=== PATIENT | female | born 1950 | race Caucasian/White ===

== ENCOUNTER 2019-05-04 06:09 | Inpatient (IN) | payer OTHER ==
[2019-05-03 12:54] VITALS: BMI 31.6
[2019-05-04] MEDS ORDERED: CEFAZOLIN 2 GM/D5W 2 GM/50 ML ML IVPB ONE (07:20)
[2019-05-04] MEDS ORDERED: ceFAZolin SODIUM 1 GM VIAL ONE ×2 (07:33→07:34)
[2019-05-04] MEDS ORDERED: ROCURONIUM BROMIDE 50 MG/5 ML SYRINGE ONE ×3 (07:33→13:08)
[2019-05-04] MEDS ORDERED: KETAMINE HCL 200 MG/20 ML VIAL ONE (07:34)
[2019-05-04] MEDS ORDERED: KETOROLAC TROMETHAMINE 30 MG/1 ML VIAL ONE (07:34)
[2019-05-04] MEDS ORDERED: SUCCINYLCHOLINE CHLORIDE 200 MG/10 ML SYRINGE ONE (07:34)
[2019-05-04] MEDS ORDERED: DEXAMETHASONE SOD PHOSPHATE 4 MG/1 ML VIAL ONE (07:34)
[2019-05-04] MEDS ORDERED: MIDAZOLAM HCL 2 MG/2 ML SINGLE DOSE VIAL ONE ×2 (07:34)
[2019-05-04] MEDS ORDERED: LIDOCAINE HCL/PF 2% SDV 5ML VIAL ONE ×2 (07:34→08:46)
[2019-05-04] MEDS ORDERED: PROPOFOL 20 ML ONE (07:34)
[2019-05-04] MEDS ORDERED: SODIUM CHLORIDE 0.9% P/F 10 ML VIAL IJ ONE (07:34)
[2019-05-04] MEDS ORDERED: BUPIVACAINE HCL/PF 0.5% (5 MG/ML) 30 ML VIAL IJ ONE (07:38)
[2019-05-04] MEDS ORDERED: VASOPRESSIN 20 UNITS/ML VIAL IV ONE (07:39)
[2019-05-04] MEDS ORDERED: DEXAMETHASONE SOD PHOSPHATE/PF 10 MG/ML SDV ONE (07:39)
[2019-05-04] MEDS ORDERED: LIDOCAINE 1%-EPI 1:100,000 30 ML MDV IJ ONE (07:45)
[2019-05-04] MEDS ORDERED: BUPIVACAINE HCL/PF 0.25% (2.5MG/ML) 10 ML VIAL ONE (07:45)
[2019-05-04] MEDS ORDERED: HEPARIN NA (PORCINE) 5,000 UNITS/ML 1ML VIAL SQ ONE (08:01)
[2019-05-04] MEDS ORDERED: HEPARIN NA (PORCINE) 5,000 UNITS/ML 1ML VIAL ONE (08:20)
[2019-05-04] MEDS ORDERED: LIDOCAINE HCL 1%, 10 MG/ML (20ML VIAL) ONE (08:20)
[2019-05-04] MEDS ORDERED: cefTRIAXone SODIUM 1 GM VIAL IVPB ONE ×2 (08:30→08:33)
[2019-05-04] MEDS ORDERED: MAGNESIUM SULF 50% (8.12 MEQ/2 ML-1 GM VIAL) ONE (08:41)
[2019-05-04] MEDS ORDERED: ePHEDrine SULFATE 50 MG/1 ML AMPULE ONE (09:02)
[2019-05-04] MEDS ORDERED: LIDOCAINE 1%/EPI 1:100000 (20 ML MULTI DOSE VIAL) IJ ONE (09:31)
[2019-05-04] MEDS ORDERED: LIDOCAINE HCL 1%, 10 MG/ML (20ML VIAL) NR ONE (09:31)
[2019-05-04] MEDS ORDERED: SEVOFLURANE 250 ML BTL ONE (10:21)
[2019-05-04] MEDS ORDERED: NEOSTIGMINE METHYLSULFATE 0.5 MG/ML - 10 ML MDV ONE (14:34)
[2019-05-04] MEDS ORDERED: GLYCOPYRROLATE 0.2 MG/1 ML VIAL ONE (14:35)
[2019-05-04] MEDS ORDERED: ONDANSETRON 4 MG/2 ML VIAL IVPUSH PRN ×2 (15:48→16:10)
[2019-05-04] MEDS ORDERED: oxyCODONE HCL 5 MG TABLET PO PRN (16:10)
[2019-05-04] MEDS ORDERED: LACTATED RINGERS SOLUTION 1,000 ML/1,000 ML INFUS.BAG IV SCH (16:15)
[2019-05-04] MEDS ORDERED: ALBUTEROL SO4 8 GM HFA INHALER IH PRN (16:20)
--- NOTE | 2019-05-04 16:28 | OP ---
Operative Note - Note: Operative Date: 05/04/19 Pre-Operative Diagnosis: Incomplete uterine prolapse Operation: Robotic supracervical hysterectomy, bilateral salpingectomy, right oophorectomy, sacral colpopexy with mesh, midurethral sling placement with mesh , posterior repair and cystoscopy Findings: as dictated Post-Operative Diagnosis: Same as Pre-op Surgeon: Fozia Delcid (Tire Sorter surgery: Dr Garzon) Tire Sorter: Frank Khan Anesthesiologist/DATA INTEGRATION ANALYST: Brandon Powers Anesthesia: General Specimens Removed: Uterus, bilateral fallopian tubes, Right ovary Estimated Blood Loss (mls): 150 (ml) Drains, Volume Out (mls): 500 (ml yellow urine) Fluid Volume Replaced (mls): 1,600 (ml LR) Operative Report Dictated: Yes
--- NOTE | 2019-05-04 16:29 | SURG ---
Surgery Senior Solutions Architect Note Senior Solutions Architect: Frank Khan PA-C (Suzy) Date of Service: 05/04/19 Diagnosis: Incomplete uterine prolapse Procedure: Operation: Robotic supracervical hysterectomy, bilateral salpingectomy, right oophorectomy, sacral colpopexy with mesh, midurethral sling placement with mesh , posterior repair and cystoscopy I was present for the entirety of the operative procedure. For further detail, please refer to operative report.
[2019-05-04] MEDS ORDERED: DICYCLOMINE HCL 20 MG TABLET PO SCH (16:30)
[2019-05-04] MEDS ORDERED: SODIUM CHLORIDE 0.9% 500 ML INFUS.BAG IV SCH (16:30)
[2019-05-04] MEDS ORDERED: ACETAMINOPHEN 1000 MG/100 ML VIAL (NON FORMULARY) IVPB ONE (16:45)
--- NOTE | 2019-05-04 17:22 | OP ---
DATE OF OPERATION: DATE OF DICTATION: 05/04/2019 PREOPERATIVE DIAGNOSIS: Incomplete uterine prolapse. POSTOPERATIVE DIAGNOSIS: Incomplete uterine prolapse. PROCEDURE: Robotic supracervical hysterectomy, bilateral salpingectomy, right oophorectomy, sacral colpopexy with mesh, midurethral sling placement with mesh, posterior repair, and cystoscopy. ANESTHESIA: General anesthesia. SURGEON: Franco Diane MD ASSISTING SURGEON: Janelle Garzon MD INDICATIONS: Stage 3 pelvic organ prolapse and stress urinary incontinence. FINDINGS: Stage 3 pelvic organ prolapse and a cystoscopy that showed a normal bladder with no lesions, injury, or stitches noted. Bilateral efflux from the ureteral orifices was seen. The ovaries appeared normal as well as a normal rectal exam at the end of the case. DESCRIPTION OF PROCEDURE: The patient was taken into the operating room and placed on the operating room table in supine position. A time-out was performed. Preoperative antibiotics including ceftriaxone were administered prior to the induction of anesthesia. Sequential compression devices were applied. General anesthesia was induced. The airway was secured using an endotracheal tube. The patient was repositioned in dorsal lithotomy position with padding to all pressure points. The arms were tucked and padded. She was then prepped and draped in the standard sterile fashion, 16-Occitan Parkinson catheter was inserted into the bladder. A 1-cm supraumbilical midline incision was made. Veress needle was used to insufflate the abdomen. Low pressures were noted. On entry, an 8-mm robotic camera port was then placed through the umbilical incision. Once visualization inside the abdomen was obtained, a survey was performed showing no injury to the underlying structures. The port sites were at least 8 cm away from each other in a standard configuration. Two 8-mm robotic ports were then placed on the patient's left side, and 1 additional 8-mm robotic port was placed on the right side. In addition, an 8-mm accessory port was placed in the patient's right side. At this point, the patient was placed in steep Trendelenburg. Robotic arms were docked. Monopolar bharat, bipolar forceps, and a tenaculum were inserted. Attention was now paid to the hysterectomy and bilateral salpingectomy robotic portion of the case. The bowels were retracted from the pelvis using a 3rd arm of the robot; however, the small bowel was difficult to retract with 1 certified medical technician assistant port, so a 2nd 5-mm certified medical technician assistant port was then placed in the left upper quadrant of the abdomen. We inspected the uterus, ovaries, and fallopian tubes all of which appeared normal. Using a tenaculum to manipulate the uterus, the round ligament was cauterized and divided. The fallopian tubes were dissected free of their attachments. The utero-ovarian ligament was divided. The anterior and posterior flaps of the broad ligament were then divided down to the level of the uterine vessels. On the patient's right side, the IP ligament was cauterized and divided allowing for the removal of the right ovary. The left ovary was noted to be normal in appearance, however, densely adherent to the pelvic sidewall, and the decision was made to leave in place given concern for further injury on dissection in the setting of a normal-appearing ovary. The anterior and posterior flaps of the broad ligament again were divided down to the level of the uterine vessels. The anterior peritoneal flap was developed, thus, the bladder from the uterus. The same was performed on contralateral side. An EA size was placed inside the vagina for manipulation, and the uterus was amputated above the cervix. At this point, attention was then paid to the sacral colpopexy component of the case. We identified the sacral promontory. We identified the right ureter laterally. The anterior longitudinal ligament was then cleared off, and the peritoneum was opened down toward the cervix. We then proceeded to develop the anterior and posterior leaflet of the peritoneum of the vaginal wall. The mesh was prepared and inserted into the pelvis. The wide flaps of the mesh were trimmed to 10 cm in length. The mesh was then delivered into the abdomen via the certified medical technician assistant port. Using 2-0 PDS sutures, the mesh was then fixed to the cervix in the anterior vaginal cuff. The tail was reflected upward, and the posterior leaf was fixed in a similar fashion to the posterior vaginal cuff. At this point, we brought the tail of the mesh through towards the sacral promontory and secured it with two 0 Prolene sutures. The excess mesh was trimmed and removed. We then retroperitonealized the mesh using a V-Lock suture in a running fashion. The pelvic was irrigated with good hemostasis noted. We then placed the specimen in an EndoCatch bag through the midline camera port and under direct visualization removed all ports except the midline camera port. The pneumoperitoneum was brought down, and the robot was undocked. Prior to removal of the camera, the EndoCatch bag was brought through the umbilical camera port at the port site. At this point, the supraumbilical incision was enlarged in order to deliver the specimen. The supraumbilical port was then closed using 0 Vicryl. The skin incisions were closed with 4-0 Monocryl in a running subcuticular fashion, and Dermabond was applied to all incisions. A cystoscopy was performed that confirmed the bladder was free from injuries or lesions. Bilateral ureteral jets were identified. The urethra was inspected as the cystoscope was withdrawn and was found to be normal in appearance. A Parkinson catheter was then replaced. We then turned our attention to the midurethral sling. The suprapubic incision points were marked approximately 2.5 cm lateral to the midline in both the left and right side just cranial to the pubic symphysis. The space of Retzius was infiltrated with 30 mL of 0.5% lidocaine on both sides for hydrodissection through the 2 marked points. Skin incisions were made using a 15 blade. At this time, the midurethra was identified approximately 1.5 cm from the urethral meatus. The epithelium was grasped with an Allis clamp, and hyrodissection was completed using 1% lidocaine with epinephrine. A 1-cm skin incision was made using a 15 blade. Two vaginal epithelial pockets were made on the left and the right using sharp dissection with the Metzenbaum scissors. The bladder was once again drained, and the catheter was replaced with the catheter guide directed to the patient's left shoulder. The right-sided retropubic trocar was introduced into the right vaginal pocket and under the pubic symphysis and directed through the space of Retzius and out the suprapubic incision. This was then repeated on the patient's left side. There was no evidence of bladder perforation or urethral perforation. The catheter guide was then removed, and the bladder was inspected with a cystoscope with a 70-degree downward lens. The retropubic sling was placed into the appropriate position using a 9 Hegar dilator as a spacer. That was placed in a tension-free manner with a medium-sized loop. The incision was copiously irrigated. Both of the sling were then cut from the trocar, sheath removed, and the wound was copiously irrigated, and the incision was reapproximated using 2-0 Vicryl sutures in a hemostatic, interlocking fashion. The skin incisions were closed and reapproximated using surgical bonding agents. At this point, we then proceeded with the perineorrhaphy. The posterior vaginal epithelium was infiltrated with 1% lidocaine with epinephrine. The posterior vaginal epithelium was incised in the midline followed by a triangle incision removing epithelial tissue to reinforce the perineal body, [address]-1 suture were used. Two interrupted stitches were then placed. We then closed the vaginal skin using 3-0 Vicryl in a running, interlocking fashion. There were no abnormalities noted on rectal exam following the procedure, and the patient then was awakened and transferred to the PACU in stable condition with a Parkinson catheter draining the bladder. All counts were correct. Dr. Franco Diane and Dr. Janelle Garzon were present and scrubbed throughout the procedure. FRANCO DIANE MD [id number]
--- NOTE | 2019-05-04 19:08 | PN ---
Progress Note (short form) - Note Progress Note: called to PACU for pt unresponsive to verbal stim. pt s/p robotic hospice clinical manager surgery, was in PACU for over 2 hours when RN was unable to arounse the pt. all VS were stable. no resp compromise. BGM was approx 160. pt unresponsive to painful stim as well. hospitalist consult called for eval and full labs ordered. during blood draw, pt suddenly woke up. she claims she could hear us but could not respond. distant history of single seizure without diagnosis- on no meds. will get hospitalist for consult and poss neuro eval. for tele monitoring overnight. pt now awake, oriented, appropriate. VSS.
--- NOTE | 2019-05-04 19:57 | CONSULT ---
Consultation: REQUESTING PROVIDER: Dr Delcid CONSULT REQUEST: We have been asked to medically evaluate this patient for sudden loss of consciousness. HISTORY OF PRESENT ILLNESS: Ms. Chowdary is a 69 year old female with past medical history asthma, HTN, iron deficiency anemia, Kidney stones, Obesity s/p gastric bypass in the late 90s, PUD, uterine prolapse with recurrent UTIs s/p laparoscopic hysterectomy with vaginal sling presented to the medicine team due to unresponsiveness to verbal and painful stimuli. Pt reports being able to hear surgical staff speaking to her but was unable to respond to any of the commands and was unable to move her body. an hour of so prior patient had received a dose of fentanyl for post op pain. At the time she was fully alert and oriented with no focal neurological deficits. Around 6 pm, pt was unable to respond to verbal and painful (sternal rub) stimuli. She endorses hearing her son crying triggered her to wake up. This episode lasted 10-15 minutes without jerking movement or postictal phase. Pt denies experiencing headaches, loss of consciousness, changes in vision, nausea, vomiting, abdominal pain or dizziness prior to the episode. Denies hx of any psychiatric illness or seizure disorder. Of note, pt underwent a laminectomy 10-15 years ago where she experienced a similar episode and was told it was attributed to low oxygen saturation. Pt also reports taking seizure medications for one year about 15 years ago for a seizure but it had remained unclear if it truly was a seizure or a TIA. Past medical history: Asthma, HTN, Iron deficiency anemia Allergies: raisin (gets hives) Past Surgical history: Gastric bypass, brest biopsy,cholecystectomy, laminectomy , hammer toe repair, spine injections Family history: Mother with uterine cancer and sister diagnosed with uterine cancer and breast cancer Social History: no smoking, alcohol, or illicit drug use REVIEW OF SYSTEMS: CONSTITUTIONAL: Absent: fever, chills, diaphoresis, generalized weakness, malaise, loss of appetite, weight change HEENT: Absent: rhinorrhea, nasal congestion, throat pain, throat swelling, difficulty swallowing, mouth swelling, ear pain, eye pain, visual changes CARDIOVASCULAR: Absent: chest pain, syncope, palpitations, irregular heart rate, lightheadedness , peripheral edema RESPIRATORY: Absent: cough, shortness of breath, dyspnea with exertion, orthopnea, wheezing, stridor, hemoptysis GASTROINTESTINAL: Absent: abdominal pain, abdominal distension, nausea, vomiting, diarrhea, constipation, melena, hematochezia GENITOURINARY: Absent: dysuria, frequency, urgency, hesitancy, hematuria, flank pain, genital pain MUSCULOSKELETAL: Absent: myalgia, arthralgia, joint swelling, back pain, neck pain SKIN: Absent: rash, itching, pallor HEMATOLOGIC/IMMUNOLOGIC: Absent: easy bleeding, easy bruising, lymphadenopathy, frequent infections ENDOCRINE: Absent: unexplained weight gain, unexplained weight loss, heat intolerance, cold intolerance NEUROLOGIC: headache Absent: focal weakness or paresthesias, dizziness, unsteady gait, seizure, mental status changes, bladder or bowel incontinence PSYCHIATRIC: Absent: anxiety, depression, suicidal or homicidal ideation, hallucinations. PHYSICAL EXAMINATION Vital Signs - 24 hr 05/04/19 05/04/19 05/04/19 06:57 07:02 15:28 Temperature 97.6 F 98.0 F Pulse Rate 70 100 H Respiratory 18 16 Rate Blood Pressure 136/76 124/61 O2 Sat by Pulse 97 97 97 Oximetry (%) 05/04/19 05/04/19 05/04/19 15:30 15:45 16:00 Temperature Pulse Rate 99 H 92 H 87 Respiratory 18 19 20 Rate Blood Pressure 123/55 L 127/62 126/62 O2 Sat by Pulse 99 99 98 Oximetry (%) 05/04/19 05/04/19 05/04/19 16:15 16:30 16:45 Temperature Pulse Rate 88 89 83 Respiratory 19 16 15 Rate Blood Pressure 123/61 114/61 126/60 O2 Sat by Pulse 98 98 98 Oximetry (%) 05/04/19 05/04/19 05/04/19 17:00 17:15 17:30 Temperature Pulse Rate 85 84 83 Respiratory 19 18 18 Rate Blood Pressure 126/64 123/58 L 121/64 O2 Sat by Pulse 96 96 96 Oximetry (%) 05/04/19 05/04/19 05/04/19 17:45 18:00 18:15 Temperature Pulse Rate 83 84 82 Respiratory 16 84 H 18 Rate Blood Pressure 126/62 125/70 123/74 O2 Sat by Pulse 95 98 99 Oximetry (%) 05/04/19 05/04/19 05/04/19 18:30 18:45 18:50 Temperature Pulse Rate 88 98 H 80 Respiratory 12 18 18 Rate Blood Pressure 125/66 145/60 133/80 O2 Sat by Pulse 99 99 99 Oximetry (%) GENERAL: Awake, alert, and fully oriented, in no acute distress. HEAD: Normal with no signs of trauma. EYES: Pupils equal, round and reactive to light, extraocular movements intact, sclera anicteric, conjunctiva clear. No lid lag. EARS, NOSE, THROAT: oropharynx clear without exudates. Moist mucous membranes. NECK: Normal range of motion, supple without lymphadenopathy, JVD, or masses. no carotid bruit LUNGS: Breath sounds equal, clear to auscultation bilaterally. No wheezes, and no crackles. No accessory muscle use. HEART: Regular rate and rhythm, normal S1 and S2 without murmur, rub or gallop. ABDOMEN: Soft, mild tenderness in surgical region, not distended, normoactive bowel sounds, no guarding, no rebound, no masses. No hepatomegaly or splenomegaly. MUSCULOSKELETAL: Normal range of motion at all joints except left ankle. No bony deformities or tenderness. No CVA tenderness. UPPER EXTREMITIES: 2+ pulses, warm, well-perfused. No cyanosis. No clubbing. Cap refill <2 seconds. No peripheral edema. LOWER EXTREMITIES: 2+ pulses, warm, well-perfused. No calf tenderness. No peripheral edema. NEUROLOGICAL: Cranial nerves II-XII intact. Normal speech. 5/5 strength in upper and lower extremities. Mild weakness in L foot dorsiflexion. sensation intact in face and body PSYCHIATRIC: Cooperative. Good eye contact. Appropriate mood and affect. SKIN: Warm, dry, normal turgor, no rashes or lesions noted. Laboratory Results - last 24 hr 05/04/19 05/04/19 07:49 18:15 POC Glucometer 164 Blood Type A POSITIVE Antibody Screen Negative Active Medications Generic Name Dose Route Start Last Admin Trade Name Freq PRN Reason Stop Dose Admin Acetaminophen 1,000 mg 05/04/19 16:15 Ofirmev Injection - IVPB 05/05/19 10:16 Q6H AMINATA Albuterol Sulfate 1 - 2 puff 05/04/19 16:20 Ventolin Hfa Inhaler - IH PRN PRN WHEEZING Dicyclomine HCl 40 mg 05/04/19 16:30 Bentyl - PO Q6H AMINATA Docusate Sodium 100 mg 05/04/19 22:00 Colace - PO TID AMINATA Fentanyl 25 mcg 05/04/19 15:48 Sublimaze Injection - IVPUSH [id number] PRN PAIN-PACU ORDER X 4 DOSES ONLY Gabapentin 300 mg 05/04/19 22:00 Neurontin - PO TID [facility] Heparin Sodium (Porcine) 5,000 unit 05/05/19 09:00 Heparin - SQ BID [facility] Hydrochlorothiazide 12.5 mg 05/05/19 10:00 Hctz - PO DAILY [facility] Lactated Ringer's 1,000 mls @ 75 mls/hr 05/04/19 16:00 Lactated Ringers Solution IV ASDIR [facility] Ceftriaxone Sodium 1 gm/ 50 mls @ 100 mls/hr 05/05/19 09:00 Dextrose IVPB 05/05/19 09:29 ONCE ONE Ibuprofen 600 mg 05/04/19 22:00 Caldolor Injection - IVPB Q6H PRN PAIN LEVEL 4 - 6 Mometasone Furoate 1 puff 05/04/19 22:00 Asmanex 220mcg - IH HS [facility] Ondansetron HCl 4 mg 05/04/19 15:48 Zofran Injection IVPUSH Q6H PRN NAUSEA AND/OR VOMITING Ondansetron HCl 4 mg 05/04/19 16:10 Zofran Injection IVPUSH Q6H PRN NAUSEA AND/OR VOMITING Oxycodone HCl 5 mg 05/04/19 16:10 Roxicodone - PO Q4H PRN PAIN LEVEL 7 - 10 Pantoprazole Sodium 40 mg 05/05/19 10:00 Protonix - PO DAILY [facility] Sodium Chloride 100 ml 05/04/19 16:30 Normal Saline - IV ASDIR [facility] ASSESSMENT/PLAN: 69 year old female with past medical history asthma, HTN, iron deficiency anemia , Kidney stones, Obesity s/p gastric bypass in the late 90s, PUD, uterine prolapse with recurrent UTIs s/p laparoscopic hysterectomy with vaginal sling presented to the medicine team due to unresponsiveness to verbal and painful stimuli. Acute neurological deficit 2/2 uncertain etiology. s/p fentanyl push for pain, s /p general anesthesia. adverse effect? as pt had a similar episode however delayed a year ago after surgery.Should rule out partial seizure as well, given history of remote seizure 15 years ago with keppra for 1 yr Monitor on telemetry. EKg was in sinus rhythm Monitor vital signs. currently stable. Monitor pulse oximetry. currently satting between 98-99% on NC 2L. Hypoxia ruled out Avoid excessive narcotics or sedatives Head CT w/o contrast showed no acute intracranial processes. 1 cm calcified nodule of the inner left frontal bone, possibly a small meningioma Suggest neuro evaluation for partial seizure in the setting of remote seizure history CBC with leukocytosis most likely secondary to recent surgery. pt afebrile and non toxic appearing. CMP remarkable for mild hyponatremia 132 and hyperglycemia at 155. hypoglycemia ruled out. Monitor lytes and replete PRN trops negative no chest pain. echo for further cardiac assessment ABG Po2 72.5 O2 sat of 94% possibly due to asthma and age. otherwise no other abnormality Dispo: We will continue to follow the patient. Thank you for this consultative opportunity. Visit type - Emergency Visit Emergency Visit: Yes ED Registration Date: 05/04/19 Care time: The patient presented to the Emergency Department on the above date and was hospitalized for further evaluation of their emergent condition. - New Patient This patient is new to me today: Yes Date on this admission: 05/05/19 - Critical Care Critical Care patient: No ATTENDING PHYSICIAN STATEMENT I saw and evaluated the patient. I reviewed the resident's note and discussed the case with the resident. I agree with the resident's findings and plan as documented. SUBJECTIVE: OBJECTIVE: ASSESSMENT AND PLAN:
[2019-05-04 19:58] LABS: BASO % 0.1 % (0-2.0); HEMOGLOBIN 11.7 GM/dL (10.7-15.3); LYMPH % 4.6 % (8-40); MCH 30.9 pg (25.7-33.7); MCHC 33.4 g/dl (32.0-36.0); MEAN CELL VOLUME 92.4 fl (80-96); MEAN PLT VOLUME 8.2 fl (7.5-11.1); MONO % 4.2 % (3.8-10.2); NEUT % 91.1 % (42.8-82.8); PLATELET COUNT 236 K/MM3 (134-434); RBC 3.78 M/mm3 (3.60-5.2); RDW 12.9 % (11.6-15.6); WHITE BLOOD COUNT 14.8 K/mm3 (4.0-10.0)
[2019-05-04 20:24] LABS: PLATELET ESTIMATE NORMAL
[2019-05-04 20:26] LABS: ALBUMIN 3.6 g/dl (3.4-5.0); ALK PHOS 79 U/L (45-117); ANION GAP 8 MMOL/L (8-16); BILIRUBIN,TOTAL 0.3 mg/dL (0.2-1); BLOOD UREA NITROGEN 6.9 mg/dL (7-18); CALCIUM 8.7 mg/dL (8.5-10.1); CHLORIDE 99 mmol/L (98-107); CO2 25 mmol/L (21-32); CREATININE 0.7 mg/dL (0.55-1.3); GLUCOSE,RANDOM 155 mg/dL (74-106); MAGNESIUM 1.9 mg/dL (1.8-2.4); PHOSPHOROUS 3.4 mg/dL (2.5-4.9); POTASSIUM 4.3 mmol/L (3.5-5.1); SGOT/AST 28 U/L (15-37); SGPT/ALT 42 U/L (13-61); SODIUM 132 mmol/L (136-145); TOT PROT 6.4 g/dl (6.4-8.2)
[2019-05-04] MEDS ORDERED: IBUPROFEN 800 MG/8 ML IJ IVPB PRN ×2 (22:00)
[2019-05-04 23:11] LABS: ARTERIAL BLD GAS O2 SATURATION 94.1 % (95-98); ARTERIAL BLOOD GAS BASE EXCESS 0.6 meq/l (-2-2); ARTERIAL BLOOD GAS PCO2 38.7 mmHg (35-45); ARTERIAL BLOOD GAS PO2 72.5 mmHg (80-100); ARTERIAL BLOOD GAS pH 7.42 (7.35-7.45)
[2019-05-04 23:12] LABS: ALLENS TEST POSITIVE
[2019-05-04] MEDS: ACETAMINOPHEN 1000 MG/100 ML VIAL (NON FORMULARY) IVPB SCH (23:26)
[2019-05-04] MEDS: DOCUSATE SODIUM 100 MG CAPSULE (FP) PO SCH (23:27)
[2019-05-04] MEDS: GABAPENTIN 300 MG CAPSULE (FP) PO SCH (23:27)
[2019-05-04] MEDS: MOMETASONE FUROATE 220 MCG/IH INHALER IH SCH (23:27)
[2019-05-04] MEDS ORDERED: PT OWN MED DRAWER 7, Y5N ONE (23:34)
[2019-05-04] MEDS: LACTATED RINGERS SOLUTION 1,000 ML IV SCH (23:45)
[2019-05-04] MEDS: DICYCLOMINE HCL 10 MG CAPSULE PO SCH (23:50)
--- NOTE | 2019-05-05 00:14 | PN ---
Teaching Attending Note Name of Resident: Roxanne Rizzo ATTENDING PHYSICIAN STATEMENT I saw and evaluated the patient. I reviewed the resident's note and discussed the case with the resident. I agree with the resident's findings and plan as documented. SUBJECTIVE: 69-year-old woman with a history of asthma, hypertension, anemia, PUD, remote seizure episode 15 years ago that was described to be tonic-clonic, underwent robotic laparoscopic supracervical hysterectomy, sacral pexy, vaginal sling, cystoscopy on 05/04 in the afternoon. Shortly postop, patient became unresponsive to staff when she was in PACU. This occurred around 6 PM patient' s vital signs were within normal limits and blood glucose was normal. Patient reported that she was able to hear everything going on not able to open her eyes. It was noted that this lasted for several minutes. No mention of tonic- clonic movements or jerks. Patient reports episode of similar occurrence one year ago following surgical procedure however occurred the day after the procedure. Patient reported slight headache but otherwise did not have any other complaints. noted that patient received 25 mcg of fentanyl push shortly prior to her episode. OBJECTIVE: Last Vital Signs Temp Pulse Resp BP Pulse Ox 98.6 F 78 16 115/51 L 99 05/04/19 22:00 05/05/19 00:00 05/05/19 00:00 05/05/19 00:00 05/04/19 22:00 GENERAL: Well developed, well nourished. Awake and alert. No acute distress. HEENT: Normocephalic, atraumatic. PERRLA, EOMI. No conjunctival pallor. Sclera are non- icteric. Moist mucous membranes. Oropharynx is clear. NECK: Supple. Full ROM. No JVD. Carotid pulses 2+ and symmetric, without bruits. No thyromegaly. No lymphadenopathy. CARDIOVASCULAR: Regular rate and rhythm. No murmurs, rubs, or gallops. Distal pulses are 2+ and symmetric. PULMONARY: No evidence of respiratory distress. Lungs clear to auscultation bilaterally. No wheezing, rales or rhonchi. ABDOMINAL: Soft. Non-tender. Non-distended. No rebound or guarding. No organomegaly. Normoactive bowel sounds. MUSCULOSKELETAL Normal range of motion at all joints. No bony deformities or tenderness. No CVA tenderness. EXTREMITIES: No cyanosis. No clubbing. No edema. No calf tenderness. SKIN: Warm and dry. Normal capillary refill. No rashes. No jaundice. PSYCHIATRIC: Cooperative. Good eye contact. Appropriate mood and affect. EKG reviewed and noted to be sinus rhythm Head CT was negative for any acute intracranial insults on my read Chemistry was positive for mild hyponatremia and CBC showed leukocytosis ASSESSMENT AND PLAN: Acute altered mental status directly postop, status post injection of fentanyl. Suspect possible adverse drug reaction from general anesthesia or fentanyl push. Hypoglycemia was ruled out. Head CT noted for a 1 cm calcified nodule of the inner left frontal bone, possibly a small meningioma but no acute insults. History also suggestive of possible isolated paralysis as thought process was described as coherent by patient.Should rule out partial seizure as well, especially given history of remote seizure 15 years ago. Monitor on film masker vital signs closely Monitor pulse oximetry Avoid excessive narcotics or sedatives Monitor electrolytes closely and supplement as needed Suggest neuro evaluation to Evaluate for partial seizure
[2019-05-05] MEDS: ACETAMINOPHEN 1000 MG/100 ML VIAL (NON FORMULARY) IVPB SCH (06:18)
[2019-05-05] MEDS: DICYCLOMINE HCL 10 MG CAPSULE PO SCH ×4 (06:23→23:03)
[2019-05-05] MEDS: GABAPENTIN 300 MG CAPSULE (FP) PO SCH ×3 (06:24→21:57)
[2019-05-05] MEDS: DOCUSATE SODIUM 100 MG CAPSULE (FP) PO SCH ×3 (06:24→21:57)
[2019-05-05 06:50] LABS: HEMATOCRIT 31.4 % (32.4-45.2); HEMOGLOBIN 10.6 GM/dL (10.7-15.3); MCH 31.2 pg (25.7-33.7); MCHC 33.7 g/dl (32.0-36.0); MEAN CELL VOLUME 92.7 fl (80-96); MEAN PLT VOLUME 8.2 fl (7.5-11.1); PLATELET COUNT 203 K/MM3 (134-434); RBC 3.39 M/mm3 (3.60-5.2); RDW 13.5 % (11.6-15.6); WHITE BLOOD COUNT 11.3 K/mm3 (4.0-10.0)
[2019-05-05 07:22] LABS: BLOOD UREA NITROGEN 7.8 mg/dL (7-18); CALCIUM 8.3 mg/dL (8.5-10.1); CREATININE 0.7 mg/dL (0.55-1.3); POTASSIUM 4.8 mmol/L (3.5-5.1)
--- NOTE | 2019-05-05 07:30 | PN ---
Teaching Attending Note Name of Resident: Tawanda Oviedo ATTENDING PHYSICIAN STATEMENT I saw and evaluated the patient. I reviewed the resident's note and discussed the case with the resident. I agree with the resident's findings and plan as documented. SUBJECTIVE: No new seizure/altered mental status overnight OBJECTIVE: Vital Signs Temperature 98.2 F 05/05/19 02:36 Pulse Rate 76 05/05/19 06:00 Respiratory Rate 19 05/05/19 06:00 Blood Pressure 103/48 L 05/05/19 06:00 O2 Sat by Pulse Oximetry (%) 99 05/04/19 22:00 General: Elderly woman, comfortable, not in distress HEENT; mucous membranes moist, no anemia, no jaundice, PERRLA, no nystagmus Neck: No JVD, supple, no bruit, thyroid palpably normal, normal carotid pulsations. Chest: Nontender, clear to auscultation bilaterally CVS: S1-S2 regular no murmur/gallop/rub Abdomen: S/P surgery, Nondistended, soft, bowel sounds present. Extremities: No edema., No cough tenderness, pulses present CENTRIFUGAL STATION OPERATOR: AO X3 , no gross motor sensory deficit CBC, BMP 05/05/19 05:45 05/05/19 05:45 Active Medications Acetaminophen (Ofirmev Injection -) 1,000 mg IVPB Q6H [facility] Stop: 05/05/19 10:16 Last Admin: 05/05/19 06:18 Dose: 1,000 mg Albuterol Sulfate (Ventolin Hfa Inhaler -) 1 - 2 puff IH Q6H PRN PRN Reason: SHORT OF BREATH/WHEEZING Dicyclomine HCl (Bentyl -) 40 mg PO Q6H [facility] Last Admin: 05/05/19 06:23 Dose: 40 mg Docusate Sodium (Colace -) 100 mg PO TID [facility] Last Admin: 05/05/19 06:24 Dose: 100 mg Fentanyl (Sublimaze Injection -) 25 mcg IVPUSH [id number] PRN PRN Reason: PAIN-PACU ORDER X 4 DOSES ONLY Gabapentin (Neurontin -) 300 mg PO TID [facility] Last Admin: 05/05/19 06:24 Dose: 300 mg Heparin Sodium (Porcine) (Heparin -) 5,000 unit SQ BID [facility] Hydrochlorothiazide (Hctz -) 12.5 mg PO DAILY [facility] Lactated Ringer's (Lactated Ringers Solution) 1,000 mls @ 75 mls/hr IV ASDIR [facility] Last Admin: 05/04/19 23:45 Dose: 75 mls/hr Ceftriaxone Sodium 1 gm/ (Dextrose) 50 mls @ 100 mls/hr IVPB ONCE ONE Stop: 05/05/19 09:29 Ibuprofen (Caldolor Injection -) 600 mg IVPB Q6H PRN PRN Reason: PAIN LEVEL 4 - 6 Mometasone Furoate (Asmanex 220mcg -) 1 puff IH HS [facility] Last Admin: 05/04/19 23:27 Dose: 1 puff Ondansetron HCl (Zofran Injection) 4 mg IVPUSH Q6H PRN PRN Reason: NAUSEA AND/OR VOMITING Ondansetron HCl (Zofran Injection) 4 mg IVPUSH Q6H PRN PRN Reason: NAUSEA AND/OR VOMITING Oxycodone HCl (Roxicodone -) 5 mg PO Q4H PRN PRN Reason: PAIN LEVEL 7 - 10 Pantoprazole Sodium (Protonix -) 40 mg PO DAILY [facility] Sodium Chloride (Normal Saline -) 100 ml IV ASDIR [facility] Last Admin: 05/04/19 23:30 Dose: 100 ml ASSESSMENT AND PLAN:69-year-old woman with a history of asthma, hypertension, anemia, PUD, remote seizure episode 15 years ago that was described to be tonic- clonic, underwent robotic laparoscopic supracervical hysterectomy, sacral pexy, vaginal sling, cystoscopy on 05/04 in the afternoon. Shortly postop, patient became unresponsive to staff when she was in PACU. This occurred around 6 PM, episode started just after fentanyl injection patient has similar episode, last year, patient says she was aware of surrounding what is going on around her, people trying to open her right forcefully but she was not able to, not communicate with. No witnessed seizure incontinence or postictal confusion. Impression: Altered mental status/dissociated state in the setting function. Problem List - Problems (1) Altered mental status Assessment/Plan: Patient had a brief transient loss of consciousness perioperatively with remote history of seizures disorder last episode was 15 years ago, considering intended infusion looks like dissociated syndrome, evaluated by neurology recommended EEG that can be performed as an outpatient patient follow-up [facility].. Problems reviewed: Yes Code(s): R41.82 - ALTERED MENTAL STATUS, UNSPECIFIED (2) Hypertension Assessment/Plan: Well-controlled continue all medications Problems reviewed: Yes Code(s): I10 - ESSENTIAL (PRIMARY) HYPERTENSION (3) S/p partial hysterectomy with remaining cervical stump Assessment/Plan: Postoperative day 1 postoperative management as per operative Problems reviewed: Yes (4) Asthma Assessment/Plan: Stable no need for any medication. Problems reviewed: Yes Code(s): J45.909 - UNSPECIFIED ASTHMA, UNCOMPLICATED
--- NOTE | 2019-05-05 07:48 | PN ---
Progress Note (short form) - Note Progress Note: Internal Medicine Consult Note (Resident) HPI: Briefly, pt here with hysterectomy and upon post-operative recovery pt was noted to be unresponsive, however pt remembers being conscious of her surroundings through auditory cues. Pt has had previous episodes before with pattern of recovering from sedating medications. Pt received fentanyl 1hr prior to episode occurring. Currently pt feels in normal state without any significant episodes after her initial one. Pt did not have any urinary incontinence, did not lose consciousness. PE: GEN: NAD, awake, alert, oriented x3 HEENT: EOMI without nystagmus, RENE, sclera anicteric, MMM Neck: No JVD, no carotid bruits LUNG: CTA b/l without wheezes or ralezs CARD: RRR no murmurs appreciated ABD: soft, nondistended, slight tenderness near surgical sites, + BS EXT: no edema noted Neuro: CN II-XII intact, strength 5/5 symmetrically throughout. No sensation loss. Babinski downgoing. CBC, BMP 05/05/19 11:52 05/05/19 05:45 Active Medications Acetaminophen (Tylenol -) 1,000 mg PO Q6H PRN PRN Reason: PAIN LEVEL 1-5 Albuterol Sulfate (Ventolin Hfa Inhaler -) 1 - 2 puff IH Q6H PRN PRN Reason: SHORT OF BREATH/WHEEZING Dicyclomine HCl (Bentyl -) 40 mg PO Q6H [facility] Last Admin: 05/05/19 18:11 Dose: 40 mg Docusate Sodium (Colace -) 100 mg PO TID [facility] Last Admin: 05/05/19 13:25 Dose: 100 mg Gabapentin (Neurontin -) 300 mg PO TID [facility] Last Admin: 05/05/19 13:25 Dose: 300 mg Heparin Sodium (Porcine) (Heparin -) 5,000 unit SQ BID [facility] Last Admin: 05/05/19 13:26 Dose: Not Given Hydrochlorothiazide (Hctz -) 12.5 mg PO DAILY [facility] Last Admin: 05/05/19 10:04 Dose: 12.5 mg Lactated Ringer's (Lactated Ringers Solution) 1,000 mls @ 75 mls/hr IV ASDIR [facility] Last Admin: 05/05/19 18:12 Dose: Not Given Ibuprofen (Motrin -) 600 mg PO Q6H PRN PRN Reason: PAIN LEVEL 4 - 6 Last Admin: 05/05/19 10:04 Dose: 600 mg Mometasone Furoate (Asmanex 220mcg -) 1 puff IH HS [facility] Last Admin: 05/04/19 23:27 Dose: 1 puff Ondansetron HCl (Zofran Injection) 4 mg IVPUSH Q6H PRN PRN Reason: NAUSEA AND/OR VOMITING Ondansetron HCl (Zofran Injection) 4 mg IVPUSH Q6H PRN PRN Reason: NAUSEA AND/OR VOMITING Oxycodone HCl (Roxicodone -) 5 mg PO Q4H PRN PRN Reason: PAIN LEVEL 7 - 10 Pantoprazole Sodium (Protonix -) 40 mg PO DAILY [facility] Last Admin: 05/05/19 10:03 Dose: 40 mg Assessment and Plan: Altered mental status Partial hysterectomy POD 1 Mild persistent asthma Hypertension history --Pt has been told she had seizure episodes in the past that was treated with AED (Keppra) in past. Low suspicion this is a seizure and given proximity to narcotic dose with avoid narcotics at this time. Neurology consultation placed for further input. Would not started any AED treatment at this time due to lack of consistent episodes and low suspicion --No telemetry events noted. Can continue monitoring on telemetry for now --HTN well controlled: Continue HCTZ12.5mg qdaily and monitor BP for any fluctuations --Post-operative management including pain control per surgical team Thank you for this consultative opportunity. Will continue to follow while patient is inpatient. Case discussed with Dr. Shakila Oviedo, DO - IM PGY-3
--- NOTE | 2019-05-05 08:31 | PN ---
Progress Note (short form) - Note Progress Note: POD 1, s/p Robotic laparoscopic supracervical hysterectomy, sacropexy, vaginal sling, cystoscopy c/b episode of unresponsiveness in PACU after fentanyl administration. Pt seen and examined. Reports she is doing well, no issues overnight. PACU episode discussed, pt reports she had a similar event 1 year ago a day after having surgery. Also had a tonic-clonic seizure approximately 15 years ago, reports she had a full workup which yielded no findings, no issues since. Draper in place overnight, has not had anything to eat/drink. No flatus yet. Denies cp/ sob, n/v/d. Vital Signs Temp 98.2 F 05/05/19 02:36 Pulse 76 05/05/19 06:00 Resp 19 05/05/19 06:00 BP 103/48 L 05/05/19 06:00 Pulse Ox 99 05/04/19 22:00 Intake & Output 05/04/19 05/04/19 05/05/19 11:59 23:59 11:59 Intake Total 1600 500 589.6 Output Total 650 2000 700 Balance 950 -1500 -110.4 Intake: IV 1600 400 589.6 Lactated Ringers Solution 589.6 1,000 ml @ 75 mls/hr IV [facility] Rx#:[id number] Oral 100 Output: Urine 500 2000 700 Draper 700 Estimated Blood Loss 150 Other: Voiding Method Indwelling Catheter Bowel Movement No CBC, BMP 05/05/19 05:45 05/05/19 05:45 Gen: awake, alert, nad Resp: unlabored on RA Abdo: soft, minimally ttp at pelvis/incision sites. Incisions c/d/i with dermabond in place. Some ecchymosis around umbilicus and left lateral port site. : No vaginal bleeding noted, draper in place with moderate yellow urine in bag A/P: 69 y/o F w/ PMHx asthma, HTN, iron deficiency anemia, Kidney stones, Obesity s/p gastric bypass in the late 90s, PUD, uterine prolapse with recurrent UTIs s/p robotic hysterectomy with vaginal sling, c/b episode of unresponsiveness in PACU after fentanyl administration. No further issues overnight. Afebrile, VSS Labs reviewed UOP 700ml overnight -Pain control with Acetaminophen 1000mg po q6hrs prn, Ibuprofen 600mg q6h PO prn , Oxycodone 5 mg q4hrs prn -DVT prophylaxis with Heparin 5000units SQ BID beginning this Am, SCDs, early ambulation -OOB -Draper out this AM, Bladder scan after 1st void and record -Monitor UOP -Clears, advance to regular diet -Possibly d/c later today vs tomorrow AM, will see pt later this afternoon d/w Dr Delcid
[2019-05-05] MEDS ORDERED: ACETAMINOPHEN 500 MG TABLET (FP) PO PRN ×3 (08:59→15:00)
[2019-05-05] MEDS ORDERED: CEFTRIAXONE 1 GM in DEXTROSE 5%-WATER - 50 ML IVPB ONE ×2 (09:00→13:30)
[2019-05-05] MEDS ORDERED: HYDROCHLOROTHIAZIDE 12.5 MG CAPSULE (FP) PO SCH (10:00)
[2019-05-05] MEDS: HEPARIN NA (PORCINE) 5,000 UNITS/ML 1ML VIAL SQ SCH ×3 (10:00→21:58)
[2019-05-05] MEDS ORDERED: PANTOPRAZOLE 40 MG TABLET (FP) PO SCH (10:00)
[2019-05-05] MEDS: IBUPROFEN 600 MG TABLET (FP) PO PRN ×2 (10:04→22:03)
--- NOTE | 2019-05-05 11:19 | ECHO ---
Name: LAURA RAE Exam:Adult Echocardiogram Study Date: 05/05/2019 08:19 AM Age: 69 yrs Reason For Study: LV Function Height: 63 in Weight: 179 lb BSA: 1.8 m2 MMode/2D Measurements & Calculations IVSd: 1.2 cm Ao root diam: 2.7 cm LVIDd: 3.3 cm LA dimension: 3.3 cm LVIDs: 2.0 cm LVPWd: 0.94 cm EDV(Teich): 43.5 ml LVOT diam: 2.0 cm ESV(Teich): 11.9 ml LAV (MOD-bp): 48.2 ml Doppler Measurements & Calculations MV E max tate: 124.0 cm/sec Ao V2 max: 210.4 cm/sec MV A max tate: 74.4 cm/sec Ao max P.7 mmHg MV E/A: 1.7 Ao V2 mean: 141.0 cm/sec MV dec time: 0.19 sec Ao mean P.2 mmHg Ao V2 VTI: 44.7 cm THO(I,D): 2.0 cm2 THO(V,D): 1.9 cm2 LV V1 max P.3 mmHg MR max tate: 416.4 cm/sec LV V1 mean P.4 mmHg MR max P.0 mmHg LV V1 max: 125.2 cm/sec LV V1 mean: 85.4 cm/sec LV V1 VTI: 28.3 cm SV(LVOT): 88.3 ml TR max tate: 255.7 cm/sec TR max P.4 mmHg PA V2 max: 88.2 cm/sec Med Peak E' Tate: 12.5 cm/sec PA max P.1 mmHg Med E/e': 9.9 Lat Peak E' Tate: 12.1 cm/sec Lat E/e': 10.3 Left Ventricle There is mild concentric left ventricular hypertrophy. Left ventricular systolic function is normal. Ejection Fraction = 55-60%. The transmitral spectral Doppler flow pattern is normal for age. Right Ventricle The right ventricle is normal in size and function. Atria Normal left and right atrial size and function. Mitral Valve The mitral valve is normal in structure and function. There is no mitral valve stenosis. There is mil d mitral regurgitation. Tricuspid Valve The tricuspid valve is normal in structure and function. There is mild tricuspid regurgitation. Right ventricular systolic pressure is elevated at 30-40mmHg. Aortic Valve The aortic valve opens well. No hemodynamically significant valvular aortic stenosis. No aortic regur gitation is present. Pulmonic Valve The pulmonic valve is not well seen, but is grossly normal. There is no pulmonic valvular stenosis. M ild pulmonic valvular regurgitation. Great Vessels The aortic root is normal size. Pericardium/Pleura There is no pericardial effusion. Interpretation Summary Left ventricular systolic function is normal. Ejection Fraction = 55-60%. The right ventricle is normal in size and function. There is mild concentric left ventricular hypertrophy. There is mild mitral regurgitation. There is mild tricuspid regurgitation. Right ventricular systolic pressure is elevated at 30-40mmHg. There is no pericardial effusion. MD Walker *Ayush 05/05/2019 11:19 AM
[2019-05-05 12:27] LABS: BASO % 0.2 % (0-2.0); EOS % 0.1 % (0-4.5); HEMATOCRIT 32.3 % (32.4-45.2); HEMOGLOBIN 11.2 GM/dL (10.7-15.3); MCH 31.9 pg (25.7-33.7); MCHC 34.8 g/dl (32.0-36.0); MEAN CELL VOLUME 91.7 fl (80-96); MEAN PLT VOLUME 7.9 fl (7.5-11.1); MONO % 8.8 % (3.8-10.2); NEUT % 78.9 % (42.8-82.8); PLATELET COUNT 229 K/MM3 (134-434); RBC 3.53 M/mm3 (3.60-5.2); RDW 13.3 % (11.6-15.6); WHITE BLOOD COUNT 10.8 K/mm3 (4.0-10.0)
[2019-05-05] MEDS ORDERED: PT OWN MED DRAWER 7, Y5N ONE (13:11)
[2019-05-05] MEDS ORDERED: DEXTROSE 5%-WATER - 50 ML IVPB ONE (13:22)
[2019-05-05] MEDS ORDERED: cefTRIAXone SODIUM 1 GM VIAL ONE (13:22)
--- NOTE | 2019-05-05 15:37 | PN ---
Progress Note (short form) - Note Progress Note: Draper removed this Am approx 0800. Pt voided twice per RN this afternoon (not measured but RN reports large amount). Bladder scan approx 400ml. Pt reports no discomfort. D/w attending, bladder scan likely altered due to pelvic fluid. Will hold off on replacing draper catheter at this time. Order placed and d/w RN to measure and record urine outputs. Attending to be by to see pt shortly. D/w attending Dr Delcid
--- NOTE | 2019-05-05 17:28 | CON.NEURO ---
Consult Consult Specialty:: Scott Referred by:: PCP - History of Present Illness History of Present Illness: 69-year-old right-handed female patient withmultiple medical problem bronchial asthma Coronary artery disease Osteoarthritis mild obesity hypertension Patient was seen in the medical ICU at the request primary care physician and the surgical team because of episode of unresponsiveness. Patient was given fentanyl before. Patient is not on narcotics. Patient with no family history of seizure. - History Source History Provided By: Medical Record Limitations to Obtaining History: Clinical Condition - Alcohol/Substance Use Hx Alcohol Use: No - Smoking History Smoking history: Never smoked Have you smoked in the past 12 months: No Home Medications - Allergies Allergies/Adverse Reactions: Allergies Allergy/AdvReac Type Severity Reaction Status Date / Time No Known Drug Allergies Allergy Verified 05/04/19 07:03 raisins Allergy Severe Hives Uncoded 05/03/19 12:44 - Home Medications Home Medications: Ambulatory Orders Albuterol Sulfate Inhaler - [Ventolin Hfa Inhaler -] 1 - 2 inh PO PRN PRN Dicyclomine HCl [Bentyl -] 40 mg PO Q6H 05/03/19 Fluticasone Propionate [Flovent Hfa] 44 mcg IH BID 05/03/19 Gabapentin 300 mg PO TID 05/03/19 Hydrochlorothiazide 12.5 mg PO DAILY 05/03/19 Omeprazole 40 mg PO DAILY 05/03/19 Ranitidine HCl 150 mg PO BID 05/03/19 Acetaminophen [Tylenol .Extra-Strength -] 1,000 mg PO PRN 05/04/19 Albuterol 0.083% Nebulizer Yojana [Ventolin 0.083% Nebulizer Soln -] 1 amp IH Q6H PRN 05/04/19 Ascorbic Acid 500 mg PO DAILY 05/04/19 Calcium Carbonate/Vitamin D3 [Calcium 600-Vit D3 400 Tablet] 1 tablet PO BID 01/13 Cyanocobalamin (Vitamin B-12) [B-12] 1,000 mcg PO DAILY 05/04/19 Ferrous Sulfate 325 mg PO DAILY 05/04/19 Fluticasone Propionate [Flovent Hfa] 220 mcg IH BID 05/04/19 Nystatin/Triamcinolone Top Cr [Mycolog II -] 30 gm TP QID 05/04/19 Sulfamethoxazole/Trimethoprim [Bactrim Ds -] 1 tab PO BID 05/04/19 Docusate Sodium [Colace] 100 mg PO BID 10 Days #20 capsule 05/05/19 Sulfamethoxazole/Trimethoprim [Bactrim Ds -] 1 tab PO BID #8 tablet 05/05/19 Tramadol HCl [Ultram] 50 mg PO Q6H PRN 5 Days #15 tablet MDD 4 05/05/19 Family Medical History Family History: Unable to Obtain Review of Systems - Review of Systems Constitutional: reports: No Symptoms Eyes: reports: No Symptoms Physical Exam-Neuro Vital Signs: Vital Signs Temperature 97.4 F L 05/05/19 14:00 Pulse Rate 77 05/05/19 14:00 Respiratory Rate 18 05/05/19 14:00 Blood Pressure 113/91 05/05/19 14:00 O2 Sat by Pulse Oximetry (%) 98 05/05/19 09:00 Constitutional: Yes: Well Nourished Neck: Yes: WNL Cardiovascular: Yes: WNL Respiratory: Yes: WNL Labs: CBC, BMP 05/05/19 11:52 05/05/19 05:45 - Neuro Exam Level Of Consciousness: Yes: Oriented to Person, Oriented to Place Eyes: Yes: PERRLA Speech: WNL Dominant Hand: Right Cranial Nerves II-XII Intact: Yes Gag: Present DTR's: 1+ Left Bicep, 1+ Right Bicep, 1+ Left Tricep, 1+ Right Tricep Response to light touch: Normal Response to pain prick: Normal Response to temperature: Normal Response to vibration: Normal Motor Strength: 3/5: Left Arm, Right Arm, Left Leg, Right Leg Gait: Deferred Imaging - Results Cat Scan: Image Reviewed Problem List - Problems (1) Altered mental status Assessment/Plan: doubt this is a seizure Your never lose consciousness and still here the surrounding environment 1. Seizure precautions. 2. Stay away from the opiates. 3. EEG. 4. Ativan when necessary seizure. 5. No indication to start the patient on antiseizure medication. Thank you very much for allowing me to be part of this patient neurological care Erma Anisa Scott Code(s): R41.82 - ALTERED MENTAL STATUS, UNSPECIFIED
[2019-05-05] MEDS: LACTATED RINGERS SOLUTION 1,000 ML IV SCH (18:12)
[2019-05-05] MEDS: MOMETASONE FUROATE 220 MCG/IH INHALER IH SCH (23:02)
[2019-05-06] MEDS ORDERED: PT OWN MED DRAWER 7, Y5N ONE (00:52)
[2019-05-06] MEDS: DICYCLOMINE HCL 10 MG CAPSULE PO SCH (05:46)
[2019-05-06] MEDS: GABAPENTIN 300 MG CAPSULE (FP) PO SCH (05:46)
[2019-05-06] MEDS: DOCUSATE SODIUM 100 MG CAPSULE (FP) PO SCH (05:46)
--- NOTE | 2019-05-06 07:57 | PN ---
Progress Note, Physician Chief Complaint: Patient remains seizure-free. - Current Medication List Current Medications: Active Medications Acetaminophen (Tylenol -) 1,000 mg PO Q6H PRN PRN Reason: PAIN LEVEL 1-5 Albuterol Sulfate (Ventolin Hfa Inhaler -) 1 - 2 puff IH Q6H PRN PRN Reason: SHORT OF BREATH/WHEEZING Dicyclomine HCl (Bentyl -) 40 mg PO Q6H [facility] Last Admin: 05/06/19 05:46 Dose: 40 mg Docusate Sodium (Colace -) 100 mg PO TID [facility] Last Admin: 05/06/19 05:46 Dose: 100 mg Gabapentin (Neurontin -) 300 mg PO TID [facility] Last Admin: 05/06/19 05:46 Dose: 300 mg Heparin Sodium (Porcine) (Heparin -) 5,000 unit SQ BID [facility] Last Admin: 05/05/19 21:58 Dose: 5,000 unit Hydrochlorothiazide (Hctz -) 12.5 mg PO DAILY [facility] Last Admin: 05/05/19 10:04 Dose: 12.5 mg Lactated Ringer's (Lactated Ringers Solution) 1,000 mls @ 75 mls/hr IV ASDIR [facility] Last Admin: 05/05/19 18:12 Dose: Not Given Ibuprofen (Motrin -) 600 mg PO Q6H PRN PRN Reason: PAIN LEVEL 4 - 6 Last Admin: 05/05/19 22:03 Dose: 600 mg Mometasone Furoate (Asmanex 220mcg -) 1 puff IH HS [facility] Last Admin: 05/05/19 23:02 Dose: 1 puff Ondansetron HCl (Zofran Injection) 4 mg IVPUSH Q6H PRN PRN Reason: NAUSEA AND/OR VOMITING Ondansetron HCl (Zofran Injection) 4 mg IVPUSH Q6H PRN PRN Reason: NAUSEA AND/OR VOMITING Oxycodone HCl (Roxicodone -) 5 mg PO Q4H PRN PRN Reason: PAIN LEVEL 7 - 10 Pantoprazole Sodium (Protonix -) 40 mg PO DAILY [facility] Last Admin: 05/05/19 10:03 Dose: 40 mg - Objective Vital Signs: Vital Signs Temperature 97.9 F 05/06/19 06:00 Pulse Rate 80 05/06/19 06:00 Respiratory Rate 18 05/06/19 06:00 Blood Pressure 140/72 05/06/19 06:00 O2 Sat by Pulse Oximetry (%) 98 05/05/19 21:00 General: Elderly woman, comfortable, not in distress HEENT; mucous membranes moist, no anemia, no jaundice, PERRLA, no nystagmus Neck: No JVD, supple, no bruit, thyroid palpably normal, normal carotid pulsations. Chest: Nontender, clear to auscultation bilaterally CVS: S1-S2 regular no murmur/gallop/rub Abdomen: S/P surgery, Nondistended, soft, bowel sounds present. 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 No active medical issues were addressed will sign off the patient Code(s): R41.82 - ALTERED MENTAL STATUS, UNSPECIFIED (2) Hypertension Assessment/Plan: Well-controlled continue all medications Code(s): I10 - ESSENTIAL (PRIMARY) HYPERTENSION (3) S/p partial hysterectomy with remaining cervical stump Assessment/Plan: Postoperative day 1 postoperative management as per operative (4) Asthma Code(s): J45.909 - UNSPECIFIED ASTHMA, UNCOMPLICATED
[2019-05-06 09:06] VITALS: BP 121/72; PULSE 79; TEMP 97.5
--- NOTE | 2019-05-08 17:11 | PATH ---
Surgical Pathology Report Patient Name: LAURA RAE [facility]. Rec. #: [id number] /Age/Gender: 1950 (Age: 69) / F Account: [id number] Location: [address] [place] [address] Taken: 05/04/2019 Received: 05/05/2019 Reported: 05/08/2019 Physicians: Fozia Delcid M.D. Specimen(s) Received UTERUS, BILATERAL TUBES AND RIGHT OVARY Clinical History Stage III pelvic organ prolapse Final Diagnosis UTERUS, BILATERAL FALLOPIAN TUBES, RIGHT OVARY, ROBOTIC SUPRACERVICAL HYSTERECTOMY, BILATERAL SALPINGECTOMY, RIGHT OOPHORECTOMY: 48 G UTERUS. INTRAMURAL LEIOMYOMA. ATROPHIC ENDOMETRIUM. DYSTROPHIC CALCIFICATION WITHIN VASCULAR HO. BILATERAL FALLOPIAN TUBES WITH FOCAL ENDOSALPINGOSIS. RIGHT OVARY WITHOUT SIGNIFICANT PATHOLOGIC FINDINGS. Electronically Signed Kisha Joseph M.D. Gross Description Received in formalin labeled "uterus, fallopian tubes bilateral, right ovary," is a 48 g supracervically amputated uterus with bilateral attached fallopian tubes and an attached right ovary. The specimen measures 5.3 cm from left to right, 3.8 cm from superior to inferior and 2.8 cm from anterior to posterior. The serosa is pink-gonzalez and smooth. The endometrial cavity measures 3 cm in length and 2.5 cm from cornu to cornu. The endometrium is gonzalez and measures up to 0.3 cm in thickness. There is a 0.5 cm in greatest dimension intramural nodule present. The remaining endometrium is gonzalez and averages 0.3 cm in thickness. The left fimbriated fallopian tube measures 4 cm in length. The outer surface is gonzalez-mann and smooth. Sectioning reveals an unremarkable lumen. The right fimbriated fallopian tube measures 4.5 cm in length. The outer surface is gonzalez-mann and smooth. Sectioning reveals an unremarkable lumen. The right ovary measures 2.0 x 1.1 x 0.8 cm. The outer surface is gonzalez and smooth. Sectioning reveals gonzalez, unremarkable ovarian parenchyma. Corporate Safety Manager sections are submitted in 10 cassettes as follows: 1-cervical stump margin of resection; 6-1-treuyfvg endomyometrium; 4-posterior endomyometrium; 5-additional posterior endomyometrium with intramural nodule; 6-left fallopian tube fimbria; 7-cross sections of left fallopian tube; 8-right fallopian tube fimbria; 9-cross sections of right fallopian tube; 10-right ovary. 05/05/201905/05/2019
--- NOTE | 2019-05-09 11:23 | EKG ---
Test Reason : Blood Pressure : / mmHG Vent. Rate : 094 BPM Atrial Rate : 094 BPM P-R Int : 154 ms QRS Dur : 088 ms QT Int : 380 ms P-R-T Axes : 070 030 029 degrees QTc Int : 475 ms POOR DATA QUALITY, INTERPRETATION MAY BE ADVERSELY AFFECTED SINUS RHYTHM WITH PREMATURE ATRIAL COMPLEXES OTHERWISE NORMAL ECG NO PREVIOUS ECGS AVAILABLE Confirmed by MD Damian, Lenard ([id number]) on 05/09/2019 11:22:36 AM Referred By: Confirmed By:Lenard Salgado MD
== END 2019-05-06 10:17 | disposition home or self-care (01) | DRG 742 ==
LOC: JSAMEDAYSX 06:09 → UNDOADMIN 06:09 → JSAMEDAYSX 16:35 → J2W 21:13 → J6S 05-05 21:11
PROVIDERS: ADMIT Student in an Organized Health Care Education/Training Program; ATTEND Student in an Organized Health Care Education/Training Program
PROC: 0UT77ZZ Resection of Bilateral Fallopian Tubes, Via Natural or Artificial Opening (ICD-10-PCS; 2019-05-04)
PROC: 0UT08ZZ Resection of Right Ovary, Via Natural or Artificial Opening Endoscopic (ICD-10-PCS; 2019-05-04)
PROC: 0UT07ZZ Resection of Right Ovary, Via Natural or Artificial Opening (ICD-10-PCS; 2019-05-04)
PROC: 0TSD4ZZ Reposition Urethra, Percutaneous Endoscopic Approach (ICD-10-PCS; 2019-05-04)
PROC: 0USG4ZZ Reposition Vagina, Percutaneous Endoscopic Approach (ICD-10-PCS; 2019-05-04)
PROC: 0TJB8ZZ Inspection of Bladder, Via Natural or Artificial Opening Endoscopic (ICD-10-PCS; 2019-05-04)
PROC: 0UT97ZL Resection of Uterus, Supracervical, Via Natural or Artificial Opening (ICD-10-PCS; principal; 2019-05-04 08:00)
DX: N81.2 Incomplete uterovaginal prolapse (principal); E87.1 Hypo-osmolality and hyponatremia; I10 Essential (primary) hypertension; J45.30 Mild persistent asthma, uncomplicated; N39.498 Other specified urinary incontinence; D50.0 Iron deficiency anemia secondary to blood loss (chronic); I25.10 Atherosclerotic heart disease of native coronary artery without angina pectoris; D72.829 Elevated white blood cell count, unspecified; R73.9 Hyperglycemia, unspecified; R41.82 Altered mental status, unspecified; T40.2X5A Adverse effect of other opioids, initial encounter; D32.9 Benign neoplasm of meninges, unspecified; E66.9 Obesity, unspecified; Z68.31 Body mass index [BMI] 31.0-31.9, adult; Z98.84 Bariatric surgery status; Z87.11 Personal history of peptic ulcer disease
CPT/HCPCS: 36415; 36600; 70450-TC; 80048; 80053; 82803; 82962; 83735; 84100; 84484; 85025; 85027; 86850; 86900; 86901; 88305-TC; 93005; 93010; 93306-TC; 94760; J0131; J1644